=== PATIENT | male | born 1965 | race Caucasian/White ===

== ENCOUNTER 2020-04-05 10:49 | Inpatient (IN) | payer OTHER ==
[~2020-04-05] VITALS: Ht 180.3 cm; Wt 115.1 kg
[2020-04-05] MEDS ORDERED: Prinivil10 MG PO (11:18)
[2020-04-05] MEDS ORDERED: ATEN100 PO (11:18)
[2020-04-05] MEDS ORDERED: CLOP75 PO (11:18)
[2020-04-05] MEDS ORDERED: Aspirin EC81 MG PO (11:18)
[2020-04-05 11:49] LABS: BASOPHILS ABSOLUTE AUTO 0.03 K/mm3 (0.00-0.23); BASOPHILS PERCENT AUTO 1 % (0-2); EOSINOPHILS ABSOLUTE AUTO 0.18 K/mm3 (0.00-0.68); EOSINOPHILS PERCENT AUTO 3 % (0-6); Hematocrit 39.5 % (37.0-53.0); Hemoglobin 13.3 g/dL (13.5-17.5); IMMATURE GRAN ABSOLUTE AUTO 0.04 K/mm3 (0.00-0.10); IMMATURE GRAN PERCENT AUTO 1 % (0-1); LYMPHOCYTES ABSOLUTE AUTO 1.03 K/mm3 (0.84-5.20); LYMPHOCYTES PERCENT AUTO 17 % (21-46); MONOCYTES ABSOLUTE AUTO 0.78 K/mm3 (0.16-1.47); MONOCYTES PERCENT AUTO 13 % (4-13); Mean Corpuscular HGB 30.1 pg (26.0-34.0); Mean Corpuscular HGB Conc 33.7 g/dL (31.5-36.5); Mean Corpuscular Volume 89 fL (80-100); Mean Platelet Volume 9.3 fL (9.1-12.4); NEUTROPHILS PERCENT AUTO 66 % (41-73); Platelet Count 156 K/mm3 (150-400); RDW Coefficient Variation 12.9 % (11.7-14.2); RDW Standard Deviation 42.7 fL (35.1-46.3); Red Blood Cell Count 4.42 M/mm3 (4.30-5.90); White Blood Cell Count 6.06 K/mm3 (4.00-11.30)
[2020-04-05 12:25] LABS: Alanine Aminotransfer (ALT/SGP 67 U/L (12-78); Albumin, Blood 3.7 g/dL (3.4-5.0); Albumin/Globulin Ratio 1.2 (0.8-1.8); Alk Phos 80 U/L (50-136); Anion Gap 5 mmol/L (6-16); Aspartate Aminotrans (AST/SGOT 91 U/L (12-37); Bilirubin, Total 0.4 mg/dL (0.1-1.0); Blood Urea Nitrogen 9 mg/dL (8-24); CO2, Blood 27 mmol/L (21-32); Calcium, Blood 8.6 mg/dL (8.5-10.1); Chloride, Blood 106 mmol/L (98-108); Creatinine, Blood 0.69 mg/dL (0.60-1.20); Glomerular Filtration Rate >60 (60-); Glucose, Blood 121 mg/dL (70-99); Potassium, Blood 3.8 mmol/L (3.5-5.5); Sodium, Blood 138 mmol/L (136-145); Total Protein, Blood 6.7 g/dL (6.4-8.2)
[2020-04-05] MEDS ORDERED: ROSUVASTATIN CA20 MG PO (13:18)
[2020-04-05 15:14] LABS: Influenza A, PCR Negative (NEGATIVE); Influenza B, PCR Negative (NEGATIVE); Resp Syncytial Virus, PCR Negative (NEGATIVE); SARS-Cov-2 (COVID-19) PCR, MMC Negative (NEGATIVE)
--- NOTE | 2020-04-05 15:50 | NUR ---
PT ADMIT FROM ER FOR C/O CP X1 WEEK THAT WORSENS WITH ACTIVITY. PT DX'D WITH NSTEMI. PT TO [employer] AT THIS TIME.
--- NOTE | 2020-04-05 18:16 | NUR ---
PT RETURNS FROM [facility], 3 STENTS PLACED. PT TOLERATED WELL, ARRIVES TO ROOM ALERT AND ORIENTED. ACCESS WAS THROUGH RT RADIAL SITE, TR BAND IN PLACE WITH 9 CC OF AIR, NO ACTIVE BLEEDING AROUND SITE, SITE IS SOFT AND NONTENDER. WILL CONTINUE TO MONITOR AND TREAT ACCORDINGLY.
--- NOTE | 2020-04-05 19:34 | NUR ---
removed 2 ml from tr band - no signs of bleeding. vss. will continue to monitor.
--- NOTE | 2020-04-05 19:49 | NUR ---
removed 3ml from tr band. vss. no signs of bleeding. will continue to patricia.
--- NOTE | 2020-04-05 20:05 | NUR ---
removed 3 ml from tr band. no signs of bleeding. vss.
--- NOTE | 2020-04-05 20:32 | NUR ---
removed 2ml from tr band. tr band completey deflated. will remain in place for 1hr and then bandage up. vss. no signs of bleeding. will continue to monitor
--- NOTE | 2020-04-05 22:12 | NUR ---
removed tr band at 2130, and placed tegaderm over insertion site. site c/d/i. no signs of bleeding. vss. will continue to monitor.
[2020-04-06 04:27] LABS: Hematocrit 41.9 % (37.0-53.0); Hemoglobin 13.9 g/dL (13.5-17.5); Mean Corpuscular HGB Conc 33.2 g/dL (31.5-36.5); Mean Corpuscular Volume 90 fL (80-100); Mean Platelet Volume 9.4 fL (9.1-12.4); Platelet Count 154 K/mm3 (150-400); RDW Coefficient Variation 13.1 % (11.7-14.2); RDW Standard Deviation 43.1 fL (35.1-46.3); Red Blood Cell Count 4.64 M/mm3 (4.30-5.90); White Blood Cell Count 6.85 K/mm3 (4.00-11.30)
[2020-04-06] MEDS ORDERED: [UNRECOGNIZED DRUG - REMARK] (04:29)
[2020-04-06 05:18] LABS: Alanine Aminotransfer (ALT/SGP 55 U/L (12-78); Albumin, Blood 4.1 g/dL (3.4-5.0); Albumin/Globulin Ratio 1.3 (0.8-1.8); Alk Phos 84 U/L (50-136); Anion Gap 8 mmol/L (6-16); Aspartate Aminotrans (AST/SGOT 98 U/L (12-37); Bilirubin, Total 0.5 mg/dL (0.1-1.0); Blood Urea Nitrogen 9 mg/dL (8-24); Bun/Creatinine Ratio 11.1 (12.0-20.0); CO2, Blood 26 mmol/L (21-32); Calcium, Blood 9.1 mg/dL (8.5-10.1); Chloride, Blood 103 mmol/L (98-108); Cholesterol 328 mg/dL (50-200); Creatinine, Blood 0.81 mg/dL (0.60-1.20); Globulin, Blood 3.1 g/dL (2.2-4.0); Glomerular Filtration Rate >60 (60-); Glucose, Blood 128 mg/dL (70-99); Potassium, Blood 3.9 mmol/L (3.5-5.5); Sodium, Blood 137 mmol/L (136-145); Total Protein, Blood 7.2 g/dL (6.4-8.2)
[2020-04-06 05:20] LABS: CHOL/HDL RATIO Unable to Calculate; LDL/HDL RATIO Unable to Calculate; Low Density Lipoprotein Chol Unable to Calculate mg/dL (0-110); Triglycerides 1793 mg/dL (30-160); Very Low Density Lipoprot Chol 359 mg/dL (6-32)
--- NOTE | 2020-04-06 05:32 | NUR ---
shift summary at beginning of shift, pt presented very agitated regarding tr band, medications that were changed, frequent vitals. pt did not want to stay overnight and was discussing about leaving after tr band was removed. pt then demanded to speak with "someone" - at this point rn asked tank charger to room to help minimize pt agitation, answer his questions. pt then understood and remained calm through night. tr band removed at 2130 - no complications. site c/d/i. vss. pt alert and oriented. sats remain >90% on room air. tele verified with monitor room - nsr. pt ambulates independently - voided x6 to toilet, no bm. pt did c/o chest pain, but after atenolol given - pt stated his pain did decrease, and was able to rest through the night. pt still has concerns regarding med regimen and changes to bp meds. pt would like to communicate with md prior to taking next set doses. vss. call light within reach, bed in lowest position. will continue to monitor until handoff to am rn.
--- NOTE | 2020-04-06 07:44 | NUR ---
PT UP IN ROOM IND. A&Ox4; CALM AND COOPERATIVE WITH CARE. PT MILD SOB WITH EXERTION, SPO2 >90% ON RA. BREATHING EVEN AND UNLABORED; LS DIM IN BASES. PT DENIES PAIN, CHEST PAIN, NAUSEA AND DIZZINESS. HR REGULAR; PER TELE SINUS IN 80'S; BP STABLE. BS NORMOACTIVE x4 QUAD; NON TENDER. TRACE SWELLING NOTED LLE; PT STATES HE HAS GOUT IN THAT LEG. VSS. NO OTHER ACUTE CHANGES NOTED. WILL CONTINUE TO MONITOR.
[2020-04-06] MEDS ORDERED: NITR.4SL SL (10:39)
--- NOTE | 2020-04-06 12:34 | NUR ---
DISCHARGE SUMMARY NO CHANGES FROM AM NOTE. VSS. PT EDUCATED ON DISCHARGE INSTRUCTIONS, FOLLOW UP APPOINTMENTS, MEDICATIONS, AND ARM RESTRICTIONS/POST STENT RESTRICTIONS. PRESCRIPTIONS CALL INTO [facility] PER PT REQUEST. PT EDUCATED ON SCHEDULED APPOINTMENTS AND TO CALL IF HE IS UNABLE TO MAKE THE APPOINTMENTS. PT LEFT ROOM ON FOOT AT 1145. PT STATES HE IS DRIVING HIMSELF HOME; PT EDUCATED ON NOT DRIVING WITHIN 24 HOURS OF PROCEDURES, PT STATES HE HAS A RIDE HOME.
== END 2020-04-06 11:45 | disposition home or self-care (01) | DRG 247 ==
LOC: ER 10:49 → PCU 15:26
PROVIDERS: Nurse Practitioner Acute Care; Physician Assistant; ADMIT Internal Medicine
PROC: 027136Z Dilation of Coronary Artery, Two Arteries with Three Drug-eluting Intraluminal Devices, Percutaneous Approach (ICD-10-PCS; principal; 2020-04-05)
PROC: 02703ZZ Dilation of Coronary Artery, One Artery, Percutaneous Approach (ICD-10-PCS; 2020-04-05)
PROC: 4A023N7 Measurement of Cardiac Sampling and Pressure, Left Heart, Percutaneous Approach (ICD-10-PCS; 2020-04-05)
PROC: B2111ZZ Fluoroscopy of Multiple Coronary Arteries using Low Osmolar Contrast (ICD-10-PCS; 2020-04-05)
DX: I21.4 Non-ST elevation (NSTEMI) myocardial infarction (principal); I50.22 Chronic systolic (congestive) heart failure; Z20.828 Contact with and (suspected) exposure to other viral communicable diseases; Z95.5 Presence of coronary angioplasty implant and graft; I25.2 Old myocardial infarction; E66.9 Obesity, unspecified; Z68.34 Body mass index [BMI] 34.0-34.9, adult; Z79.02 Long term (current) use of antithrombotics/antiplatelets; I25.10 Atherosclerotic heart disease of native coronary artery without angina pectoris; J44.9 Chronic obstructive pulmonary disease, unspecified; Z79.82 Long term (current) use of aspirin; Z87.891 Personal history of nicotine dependence; I11.0 Hypertensive heart disease with heart failure; E78.2 Mixed hyperlipidemia; I49.3 Ventricular premature depolarization
CPT/HCPCS: 0241U; 36415; 71046; 80053; 80061; 83880; 84484; 85025; 85027; 85347; 85379; 93005; 93010; 93306; 93458; 96374; 96375; 99152; 99153; 99285-25; A9270-GY; C1725; C1769; C1874; C1887; C1894; C9600; C9601; J1644; J2250; J2405; J3010; J7030; J7050; Q2038; Q9967

== ENCOUNTER 2021-12-13 14:08 | Emergency (ER) | payer OTHER ==
[~2021-12-13] VITALS: Ht 180.3 cm; Wt 114.3 kg
[~2021-12-13 14:08] MED LIST: ATEN100 PO; Aspirin EC81 MG PO; CLOP75 PO; NITR.4SL SL; Prinivil10 MG PO; ROSUVASTATIN CA20 MG PO; [UNRECOGNIZED DRUG - REMARK]
[2021-12-13 15:05] LABS: BASOPHILS ABSOLUTE AUTO 0.05 K/mm3 (0.00-0.23); BASOPHILS PERCENT AUTO 1 % (0-2); EOSINOPHILS ABSOLUTE AUTO 0.25 K/mm3 (0.00-0.68); EOSINOPHILS PERCENT AUTO 3 % (0-6); Hematocrit 42.1 % (37.0-53.0); Hemoglobin 13.8 g/dL (13.5-17.5); IMMATURE GRAN ABSOLUTE AUTO 0.08 K/mm3 (0.00-0.10); IMMATURE GRAN PERCENT AUTO 1 % (0-1); LYMPHOCYTES PERCENT AUTO 19 % (21-46); MONOCYTES ABSOLUTE AUTO 0.71 K/mm3 (0.16-1.47); MONOCYTES PERCENT AUTO 8 % (4-13); Mean Corpuscular HGB 27.4 pg (26.0-34.0); Mean Corpuscular HGB Conc 32.8 g/dL (31.5-36.5); Mean Corpuscular Volume 84 fL (80-100); Mean Platelet Volume 8.8 fL (9.1-12.4); NEUTROPHILS ABSOLUTE AUTO 5.98 K/mm3 (1.96-9.15); NEUTROPHILS PERCENT AUTO 68 % (41-73); Platelet Count 246 K/mm3 (150-400); RDW Coefficient Variation 14.7 % (11.7-14.2); RDW Standard Deviation 44.2 fL (35.1-46.3); Red Blood Cell Count 5.03 M/mm3 (4.30-5.90); White Blood Cell Count 8.77 K/mm3 (4.00-11.30)
[2021-12-13 15:23] LABS: Albumin, Blood 4.3 g/dL (3.4-5.0); Albumin/Globulin Ratio 1.2 (0.8-1.8); Bilirubin, Total 0.4 mg/dL (0.1-1.0); Bun/Creatinine Ratio 21.4 (12.0-20.0); Calcium, Blood 9.6 mg/dL (8.5-10.1); Creatinine, Blood 0.84 mg/dL (0.60-1.20); Globulin, Blood 3.6 g/dL (2.2-4.0); Potassium, Blood 3.8 mmol/L (3.5-5.5); Total Protein, Blood 7.9 g/dL (6.4-8.2)
== END 2021-12-13 18:09 | disposition home or self-care (01) ==
LOC: ER 14:08
PROVIDERS: Physician Assistant
DX: K62.5 Hemorrhage of anus and rectum (principal); I11.0 Hypertensive heart disease with heart failure; I50.22 Chronic systolic (congestive) heart failure; I25.10 Atherosclerotic heart disease of native coronary artery without angina pectoris; K21.9 Gastro-esophageal reflux disease without esophagitis; Z95.5 Presence of coronary angioplasty implant and graft; Z79.899 Other long term (current) drug therapy; Z79.82 Long term (current) use of aspirin; Z79.02 Long term (current) use of antithrombotics/antiplatelets
CPT/HCPCS: 36415; 80053; 85025; J1885